=== PATIENT | female | born 1970 | race Caucasian/White ===

== ENCOUNTER 2017-04-24 10:29 | Emergency (ER) | payer OTHER ==
[2017-04-24 10:40] VITALS: BP 126/86; PULSE 102; TEMP 98; BMI 38.2
[2017-04-24] MEDS ORDERED: ALBUTEROL SO4 2.5/IPRATROPIUM 0.5 INH SOL 3 ML VIAL.NEB. NEB ONE ×3 (10:41→12:07)
[2017-04-24] MEDS ORDERED: predniSONE 20 MG TABLET (UD) PO ONE (12:03)
[2017-04-24] MEDS ORDERED: predniSONE 20 MG TABLET (UD) ONE (12:07)
--- NOTE | 2017-04-24 12:41 | PDOC ---
History of Present Illness - General Chief Complaint: Asthma Stated Complaint: COUGH Time Seen by Provider: 04/24/17 11:49 History Source: Patient Exam Limitations: No Limitations - History of Present Illness Initial Comments: 04/24/17 12:24 46 yr female with c/o cough wheezing for one week saw PMD was treated for acid reflux, pt states cough improved but returned today. no fever no chills, no abd pain pt c/o headache after coughing, non smoker. Past History - Past Medical History Allergies/Adverse Reactions: Allergies Allergy/AdvReac Type Severity Reaction Status Date / Time No Known Allergies Allergy Verified 04/24/17 10:34 Home Medications: Ambulatory Orders Aspirin [ASA -] 81 mg PO DAILY #0 tab.chew 02/16/16 Diltiazem Cd [Cardizem Cd -] 120 mg PO DAILY #0 cap.cd.24h 02/16/16 Levothyroxine [Synthroid -] 125 mcg PO DAILY@1000 #0 tablet 02/16/16 Rosuvastatin [Crestor -] 5 mg PO DAILY #0 tablet 02/16/16 Azithromycin [Zithromax 250mg Tablets -] 250 mg PO UTDICT #6 tab 04/24/17 Prednisone [Deltasone] 40 mg PO DAILY #8 tablet 04/24/17 Asthma: Yes Cardiac Disorders: Yes (mvp) COPD: No GI Disorders: Yes (gerd) HTN: Yes Thyroid Disease: Yes Other medical history: vasovagal - Surgical History Abdominal Surgery: Yes (tubal ligation) - Immunization History Immunization Up to Date: Yes - Suicide/Smoking/Psychosocial Hx Smoking History: Never smoked Have you smoked in the past 12 months: No Information on smoking cessation initiated: No Hx Alcohol Use: No Drug/Substance Use Hx: No Substance Use Type: None *Physical Exam - Vital Signs Last Vital Signs Temp Pulse Resp BP Pulse Ox 98.0 F 102 H 18 126/86 100 04/24/17 10:35 04/24/17 10:35 04/24/17 10:35 04/24/17 10:35 04/24/17 10:35 - Physical Exam General Appearance: Yes: Nourished, Appropriately Dressed HEENT: positive: EOMI, AKANKSHA Neck: positive: Supple. negative: Tender Respiratory/Chest: positive: Lungs Clear, Normal Breath Sounds. negative: Chest Tender Cardiovascular: positive: Regular Rhythm, Regular Rate ED Treatment Course - Medications Given in the ED: ED Medications Discontinued Medications Generic Name Dose Route Start Last Admin Trade Name Alem PRN Reason Stop Dose Admin Albuterol/Ipratropium 1 amp 04/24/17 10:41 04/24/17 10:43 Duoneb - NEB 04/24/17 10:42 1 amp NOW ONE Administration Albuterol/Ipratropium 1 amp 04/24/17 12:03 04/24/17 12:10 Duoneb - NEB 04/24/17 12:04 1 amp ONCE ONE Administration Prednisone 40 mg 04/24/17 12:03 04/24/17 12:10 Deltasone - PO 04/24/17 12:04 40 mg ONCE ONE Administration Medical Decision Making - Medical Decision Making 04/24/17 12:26 cc: cough wheezing no fever no chills no abd pain stable vitals speaking clearly no distress will give duoneb now for mild exp wheezing prednisone 40mg now and for 5 days *DC/Admit/Observation/Transfer Diagnosis at time of Disposition: Acute bronchitis, viral - Discharge Dispostion Disposition: HOME Condition at time of disposition: Good - Prescriptions Prescriptions: Azithromycin [Zithromax 250mg Tablets -] 250 mg PO UTDICT #6 tab Prednisone [Deltasone] 40 mg PO DAILY #8 tablet - Referrals Referrals: Jassi Mcclain MD [Primary Care Provider] - - Patient Instructions Printed Discharge Instructions: DI for Bronchiolitis Additional Instructions: drink at least 2 liters of water a day use the inhaler every 4hrs as needed use the nebulizer with albuterol every 4hrs as needed take the next dose of prednsione tomorrow morning take the Zpack as directed for 5 days follow with your doctor on Thursday if no improvement - Post Discharge Activity
== END 2017-04-24 12:54 | disposition home or self-care (01) ==
LOC: JERFT 10:29
PROC: 3E0F7GC Introduction of Other Therapeutic Substance into Respiratory Tract, Via Natural or Artificial Opening (ICD-10-PCS; principal; 2017-04-24)
PROC: 3E0F7GC Introduction of Other Therapeutic Substance into Respiratory Tract, Via Natural or Artificial Opening (ICD-10-PCS; 2017-04-24)
DX: J20.9 Acute bronchitis, unspecified (principal); I10 Essential (primary) hypertension; K21.9 Gastro-esophageal reflux disease without esophagitis; E03.9 Hypothyroidism, unspecified
CPT/HCPCS: 99281-25

== ENCOUNTER 2017-06-23 06:37 | Emergency (ER) | payer OTHER ==
[2017-06-23 07:13] VITALS: BP 112/65; PULSE 91; TEMP 98.3; BMI 38.7
[2017-06-23] MEDS ORDERED: ALBUTEROL SO4 2.5/IPRATROPIUM 0.5 INH SOL 3 ML VIAL.NEB. NEB ONE ×3 (07:14→08:42)
[2017-06-23] MEDS ORDERED: PANTOPRAZOLE 40 MG TABLET (FP) PO ONE (08:38)
[2017-06-23] MEDS ORDERED: DEXAMETHASONE LIQUID 0.5 MG/5 ML 240 ML BULK BOTTLE PO ONE (08:38)
[2017-06-23] MEDS ORDERED: ALBUTEROL SO4 0.083% IH SOL 2.5 MG/3 ML VIAL.NEB. NEB ONE (08:39)
[2017-06-23] MEDS ORDERED: DEXAMETHASONE SOD PHOSPHATE 10 MG/1 ML VIAL ONE (08:42)
[2017-06-23] MEDS ORDERED: PANTOPRAZOLE 40 MG TABLET (FP) ONE (09:06)
--- NOTE | 2017-06-23 09:15 | PDOC ---
History of Present Illness - General Chief Complaint: Asthma Stated Complaint: Asthma, Cough Time Seen by Provider: 06/23/17 08:15 History Source: Patient Exam Limitations: No Limitations - History of Present Illness Initial Comments: 06/23/17 09:00 Patient is a 46 year old female with history of asthma, hypertension, hypothyroidism and reflux related asthma presents with coughing since eating a beef pale yesterday. Patient was diagnosed with severe reflux and had recently changed her diet yesterday while at work there is no other options besides [place] beef patties associated afterward started coughing now with intermittent persisting cough. Denies any fever, no chest pain or shortness of breath. Has been taking omeprazole, without resolve. Allergies: No known allergies Medications: Omeprazole Family History: Non-contributory Social History: Denies smoking, alcohol use, or IVDU Pulse rate 91. Review of Systems GENERAL/CONSTITUTIONAL: No fever or chills. No weakness. No weight change. HEAD, EYES, EARS, NOSE AND THROAT: No change in vision. No ear pain or discharge. No sore throat. CARDIOVASCULAR: No chest pain or shortness of breath. RESPIRATORY: And productive cough and wheezing, no hemoptysis. GASTROINTESTINAL: No nausea, vomiting, diarrhea or constipation. No rectal bleeding. GENITOURINARY: No dysuria, frequency, or change in urination. MUSCULOSKELETAL: No joint or muscle swelling or pain. No neck or back pain. SKIN AND BREASTS: No rash or easy bruising. NEUROLOGIC: No headache, vertigo, loss of consciousness, or loss of sensation. PSYCHIATRIC: No depression or anxiety. ENDOCRINE: No increased thirst. No abnormal weight change. HEMATOLOGIC/LYMPHATIC: No anemia, easy bleeding, or history of blood clots. ALLERGIC/IMMUNOLOGIC: No hives or skin allergy. No latex allergy. Physical Exam: GENERAL: The patient is awake, alert, and fully oriented, in no acute distress. EYES: Pupils equal, round and reactive to light, extraocular movements intact, sclera anicteric, conjunctiva clear. ENT: Ears normal, nares patent, oropharynx clear without exudates. Moist mucous membranes. No uvula deviation NECK: Normal range of motion, supple without lymphadenopathy, JVD, or masses. LUNGS: Breath sounds equal, no rhonchi, expiratory wheezing with no crackles bronchospasm during assessment. HEART: Regular rate and rhythm, normal S1 and S2 without murmur, rub or gallop. ABDOMEN: Soft, nontender, normoactive bowel sounds. No guarding, no rebound. No masses. No bruising or abrasions MUSCULOSKELETAL: Normal range of motion, no edema. No clubbing or cyanosis. No cords, erythema, or tenderness. No CVA Tenderness with fist. NEUROLOGICAL: Cranial nerves II through XII grossly intact. Normal speech, normal gait. SKIN: Warm, Dry, normal turgor, no rashes or lesions noted. 06/23/17 09:37 Past History - Past Medical History Allergies/Adverse Reactions: Allergies Allergy/AdvReac Type Severity Reaction Status Date / Time No Known Allergies Allergy Verified 06/23/17 07:08 Home Medications: Ambulatory Orders Aspirin [ASA -] 81 mg PO DAILY #0 tab.chew 02/16/16 Diltiazem Cd [Cardizem Cd -] 120 mg PO DAILY #0 cap.cd.24h 02/16/16 Levothyroxine [Synthroid -] 125 mcg PO DAILY@1000 #0 tablet 02/16/16 Diltiazem [Cardizem -] 30 mg PO QID 06/23/17 Famotidine [Pepcid -] 40 mg PO ASDIR 06/23/17 Pantoprazole Sodium [Protonix -] 40 mg PO DAILY #7 tablet.ec 06/23/17 Topiramate 25 mg PO 06/23/17 Topiramate [Trokendi Xr] 25 mg PO BID 06/23/17 Asthma: Yes Cardiac Disorders: Yes (mvp) COPD: No DVT: No GI Disorders: Yes (gerd) HTN: Yes Thyroid Disease: Yes - Surgical History Abdominal Surgery: Yes (tubal ligation) - Immunization History Immunization Up to Date: Yes - Suicide/Smoking/Psychosocial Hx Smoking History: Never smoked Have you smoked in the past 12 months: No Information on smoking cessation initiated: No Hx Alcohol Use: No Drug/Substance Use Hx: No Substance Use Type: None *Physical Exam - Vital Signs Last Vital Signs Temp Pulse Resp BP Pulse Ox 98.3 F 91 H 19 112/65 96 06/23/17 07:06 06/23/17 07:06 06/23/17 07:06 06/23/17 07:06 06/23/17 07:06 ED Treatment Course - Medications Given in the ED: ED Medications Discontinued Medications Generic Name Dose Route Start Last Admin Trade Name Freq PRN Reason Stop Dose Admin Albuterol/Ipratropium 1 amp 06/23/17 07:19 06/23/17 07:19 Duoneb - NEB 06/23/17 07:20 1 amp NOW ONE Administration Medical Decision Making - Medical Decision Making 06/23/17 09:16 A/P: Patient here with reflux, asthma exacerbation. Patient reports symptoms started after eating [place] beef razia. Lungs with expiratory wheezing, patient complaining of reflux does have an appointment on July 17 for upper endoscopy with gastroenterology. Will give Protonix 40 mg by mouth, Decadron 10 mg by mouth, repeat albuterol then reevaluate. 06/23/17 09:35 Patient report feels better after treatment will DC patient on Protonix for 7 days, and to continue her albuterol as previously prescribed. Recommend follow- up with GI, and stick to reflux diet. Lungs are clear and reassessment and no cough noted. 06/23/17 09:37 *DC/Admit/Observation/Transfer Diagnosis at time of Disposition: Reflux esophagitis Asthma Qualifiers: Asthma severity: mild Asthma persistence: intermittent Asthma complication type : with acute exacerbation Qualified Code(s): J45.21 - Mild intermittent asthma with (acute) exacerbation - Discharge Dispostion Disposition: HOME Condition at time of disposition: Stable Admit: No - Prescriptions Prescriptions: Pantoprazole Sodium [Protonix -] 40 mg PO DAILY #7 tablet.ec - Referrals Referrals: Jassi Mcclain MD [Primary Care Provider] - - Patient Instructions Additional Instructions: Please make sure to stick to previous diet for reflux. Please follow-up with your primary care doctor and GI Continue albuterol as needed - Post Discharge Activity Forms/Work/School Notes: Back to Work
== END 2017-06-23 09:42 | disposition home or self-care (01) ==
LOC: JERFT 06:37 → JER 06:37 → JERFT 09:42
PROC: 3E0F7GC Introduction of Other Therapeutic Substance into Respiratory Tract, Via Natural or Artificial Opening (ICD-10-PCS; principal; 2017-06-23)
DX: J45.21 Mild intermittent asthma with (acute) exacerbation (principal); K21.9 Gastro-esophageal reflux disease without esophagitis; I10 Essential (primary) hypertension; E03.9 Hypothyroidism, unspecified; I34.1 Nonrheumatic mitral (valve) prolapse
CPT/HCPCS: 99281-25

== ENCOUNTER 2019-05-12 21:39 | Emergency (ER) | payer OTHER ==
[2019-05-12 22:03] VITALS: BP 122/59; PULSE 83; TEMP 98.1; BMI 39.0
[2019-05-12] MEDS ORDERED: methylPREDNISolone NA SUCC 125 MG/2 ML VIAL IVPB ONE (22:23)
[2019-05-12] MEDS ORDERED: ALBUTEROL SO4 2.5/IPRATROPIUM 0.5 INH SOL 3 ML VIAL.NEB. NEB ONE ×2 (22:39→22:44)
[2019-05-12] MEDS ORDERED: methylPREDNISolone NA SUCC 125 MG/2 ML VIAL ONE ×2 (22:40→22:44)
[2019-05-12] MEDS: ALBUTEROL SO4 2.5/IPRATROPIUM 0.5 INH SOL 3 ML VIAL.NEB. NEB SCH ×3 (22:48→23:12)
--- NOTE | 2019-05-13 00:01 | PDOC ---
History of Present Illness - General Chief Complaint: Asthma Stated Complaint: ASTHMA Time Seen by Provider: 05/12/19 22:10 History Source: Patient Exam Limitations: No Limitations Past History - Past Medical History Allergies/Adverse Reactions: Allergies Allergy/AdvReac Type Severity Reaction Status Date / Time No Known Allergies Allergy Verified 05/12/19 22:03 Home Medications: Ambulatory Orders Aspirin [ASA -] 81 mg PO DAILY #0 tab.chew 02/16/16 Diltiazem Cd [Cardizem Cd -] 120 mg PO DAILY #0 cap.cd.24h 02/16/16 Levothyroxine [Synthroid -] 125 mcg PO DAILY@1000 #0 tablet 02/16/16 Diltiazem [Cardizem -] 30 mg PO QID 06/23/17 Famotidine [Pepcid -] 40 mg PO ASDIR 06/23/17 Pantoprazole Sodium [Protonix -] 40 mg PO DAILY #7 tablet.ec 06/23/17 Topiramate 25 mg PO 06/23/17 Topiramate [Trokendi Xr] 25 mg PO BID 06/23/17 Fluticasone Propionate [Flovent Hfa] 44 mcg IH BID #1 inh 05/13/19 predniSONE [Deltasone -] 40 mg PO DAILY #8 tablet 05/13/19 Asthma: Yes Cardiac Disorders: Yes (mvp) COPD: No DVT: No GI Disorders: Yes (gerd) HTN: Yes Thyroid Disease: Yes - Surgical History Abdominal Surgery: Yes (tubal ligation) - Immunization History Immunization Up to Date: Yes - Psycho Social/Smoking Cessation Hx Smoking History: Never smoked Have you smoked in the past 12 months: No Information on smoking cessation initiated: No Hx Alcohol Use: No Drug/Substance Use Hx: No Substance Use Type: None *Physical Exam - Vital Signs Last Vital Signs Temp Pulse Resp BP Pulse Ox 98.1 F 83 24 H 122/59 L 94 L 05/12/19 21:59 05/12/19 21:59 05/12/19 21:59 05/12/19 21:59 05/12/19 21:59 - Physical Exam General Appearance: No: Apparent Distress Respiratory/Chest: positive: Wheezing. negative: Respiratory Distress, Accessory Muscle Use, Rhonchi, Stridor Cardiovascular: positive: Regular Rhythm, Regular Rate, S1, S2. negative: Murmur Integumentary: positive: Normal Color Neurologic: positive: Alert ED Treatment Course - Medications Given in the ED: ED Medications Discontinued Medications Generic Name Dose Route Start Last Admin Trade Name Alem PRN Reason Stop Dose Admin Albuterol/Ipratropium 1 amp 05/12/19 22:30 05/12/19 23:12 Duoneb - NEB 05/12/19 23:01 1 amp Q15M BRYAN Administration Methylprednisolone Sodium Succinate 125 mg 05/12/19 22:23 05/12/19 23:12 Solu-Medrol - IVPB 05/12/19 22:24 125 mg ONCE ONE Administration Medical Decision Making - Medical Decision Making 48-year-old female history of asthma (never intubated, never hospitalized), hypertension, hypothyroidism, acid reflux, mitral valve prolapse presents with shortness of breath and chest tightness from today along with dry cough. Patient mentions her asthma has been getting progressively worse over the past month and today it was the worst. She feels like her symptoms are related to her acid reflux as her doctor changed her acid reflux medications a month ago. States this happened to her 2 years ago as well when her acid reflux medications got changed. Patient currently only uses albuterol for her asthma. Denies fever, abdominal pain, nausea, vomiting, leg swelling, calf pain. Denies smoking or drug use. Patient feeling better after receiving duo nebs x3 along with Solu-Medrol Had patient ambulating around ED as well and not feeling short of breath Will also add on Flovent for further asthma control Stable for discharge 05/12/19 23:57 Discharge - Discharge Information Problems reviewed: Yes Clinical Impression/Diagnosis: Asthma exacerbation Qualifiers: Asthma severity: moderate Asthma persistence: unspecified Qualified Code(s): J45.901 - Unspecified asthma with (acute) exacerbation Condition: Improved Disposition: HOME - Admission No - Additional Discharge Information Prescriptions: Fluticasone Propionate [Flovent Hfa] 44 mcg IH BID #1 inh predniSONE [Deltasone -] 40 mg PO DAILY #8 tablet Prescription Drug Monitoring Program (I-STOP) results: I-STOP not reviewed - Follow up/Referral Referrals: Jassi Mcclain MD [Primary Care Provider] - 2 Days - Patient Discharge Instructions Patient Printed Discharge Instructions: DI for Asthma -- Adult Additional Instructions: Thank you for choosing [facility]. It was a pleasure taking care of you. Use albuterol as needed for wheezing/shortness of breath Take the steroids as prescribed You were also started a new medication for your asthma called Flovent. Please take this medication daily as prescribed Follow-up with your doctor in 2 days Return to the Emergency Department if your symptoms worsen or persist or have other concerning symptoms. - Post Discharge Activity
== END 2019-05-13 00:12 | disposition home or self-care (01) ==
LOC: JER 21:39 → JERFT 21:39 → JER 05-13 00:12
PROC: 3E0F7GC Introduction of Other Therapeutic Substance into Respiratory Tract, Via Natural or Artificial Opening (ICD-10-PCS; principal; 2019-05-12)
PROC: 3E0333Z Introduction of Anti-inflammatory into Peripheral Vein, Percutaneous Approach (ICD-10-PCS; 2019-05-12)
DX: J45.901 Unspecified asthma with (acute) exacerbation (principal); I10 Essential (primary) hypertension; E03.9 Hypothyroidism, unspecified; K21.9 Gastro-esophageal reflux disease without esophagitis; I34.1 Nonrheumatic mitral (valve) prolapse; R01.1 Cardiac murmur, unspecified; Z98.51 Tubal ligation status
CPT/HCPCS: 99285-25

== ENCOUNTER 2020-02-28 13:35 | Emergency (ER) | payer OTHER ==
[2020-02-28 14:00] VITALS: BP 126/48; PULSE 75; TEMP 98.4; BMI 36.6
[2020-02-28] MEDS ORDERED: METOCLOPRAMIDE HCL INJECTION 10 MG/2 ML VIAL IVPB ONE (14:38)
[2020-02-28] MEDS ORDERED: ACETAMINOPHEN 1000 MG/100 ML VIAL (NON FORMULARY) IVPB ONE (14:38)
[2020-02-28] MEDS ORDERED: METOCLOPRAMIDE HCL INJECTION 10 MG/2 ML VIAL ONE (14:47)
[2020-02-28] MEDS ORDERED: ACETAMINOPHEN INJECTION 100 ML IVPB ONE (14:47)
[2020-02-28] MEDS ORDERED: SODIUM CHLORIDE 1,000 ML IV STA (15:02)
[2020-02-28 15:11] LABS: EOS % 1.2 % (0-4.5); HEMATOCRIT 40.3 % (32.4-45.2); HEMOGLOBIN 13.2 GM/dL (10.7-15.3); LYMPH % 23.3 % (8-40); MCHC 32.7 g/dl (32.0-36.0); MEAN CELL VOLUME 85.6 fl (80-96); MEAN PLT VOLUME 8.4 fl (7.5-11.1); NEUT % 69.5 % (42.8-82.8); PLATELET COUNT 302 K/MM3 (134-434); RDW 14.1 % (11.6-15.6); WHITE BLOOD COUNT 8.1 K/mm3 (4.0-10.0)
[2020-02-28 15:28] LABS: INR 1.07 (0.83-1.09); PROTHROMBIN TIME (PATIENT) 13.1 SEC (9.7-13.0)
[2020-02-28 15:29] LABS: CHLORIDE 104 mmol/L (98-107); POTASSIUM 3.8 mmol/L (3.5-5.1); SODIUM 141 mmol/L (136-145)
[2020-02-28 15:31] LABS: CALCIUM 8.8 mg/dL (8.5-10.1)
[2020-02-28 15:32] LABS: ALBUMIN 3.4 g/dl (3.4-5.0); ANION GAP 8 MMOL/L (8-16); BLOOD UREA NITROGEN 17.1 mg/dL (7-18); CO2 29 mmol/L (21-32); GLUCOSE,RANDOM 81 mg/dL (74-106)
[2020-02-28 15:35] LABS: CREATININE 0.7 mg/dL (0.55-1.3); SGOT/AST 17 U/L (15-37); SGPT/ALT 16 U/L (13-61)
[2020-02-28 15:36] LABS: BILIRUBIN,TOTAL 0.3 mg/dL (0.2-1)
[2020-02-28 15:37] LABS: TOT PROT 7.3 g/dl (6.4-8.2)
[2020-02-28 15:38] LABS: ALK PHOS 133 U/L (45-117)
== END 2020-02-28 17:59 | disposition home or self-care (01) ==
LOC: JERFT 13:35
PROC: 3E0333Z Introduction of Anti-inflammatory into Peripheral Vein, Percutaneous Approach (ICD-10-PCS; principal; 2020-02-28)
PROC: 3E033GC Introduction of Other Therapeutic Substance into Peripheral Vein, Percutaneous Approach (ICD-10-PCS; 2020-02-28)
PROC: 3E033GC Introduction of Other Therapeutic Substance into Peripheral Vein, Percutaneous Approach (ICD-10-PCS; 2020-02-28)
PROC: 3E0337Z Introduction of Electrolytic and Water Balance Substance into Peripheral Vein, Percutaneous Approach (ICD-10-PCS; 2020-02-28)
DX: M79.602 Pain in left arm (principal); G43.809 Other migraine, not intractable, without status migrainosus; I34.1 Nonrheumatic mitral (valve) prolapse
CPT/HCPCS: 36415; 70450-TC; 80053; 82550; 84484; 84703; 85025; 85610; 93005; 93010; 99285-25; J0131

== ENCOUNTER 2021-06-14 17:52 | Emergency (ER) | payer OTHER ==
[2021-06-14 18:09] VITALS: BP 138/77; PULSE 83; TEMP 98.1; BMI 41.0
[2021-06-14] MEDS ORDERED: ALBUTEROL SO4 0.083% IH SOL 2.5 MG/3 ML VIAL.NEB. NEB ONE ×2 (20:32→20:42)
[2021-06-14] MEDS ORDERED: DEXAMETHASONE SOD PHOSPHATE 10 MG/1 ML VIAL IVPUSH ONE (20:34)
[2021-06-14] MEDS ORDERED: FAMOTIDINE 20 MG/50 ML IVPB 20 MG/50 ML MG IVPB ONE ×2 (20:35→20:43)
[2021-06-14] MEDS ORDERED: MAG HYDROX/AL HYDROX/SIMETH 30 ML UNIT-DOSE CUP PO ONE (20:35)
[2021-06-14] MEDS ORDERED: DEXAMETHASONE SOD PHOSPHATE 10 MG/1 ML VIAL ONE (20:42)
[2021-06-14] MEDS ORDERED: MAG HYDROX/AL HYDROX/SIMETH 30 ML UNIT-DOSE CUP ONE (20:42)
[2021-06-14 21:17] LABS: BASO % 0.6 % (0-2.0); EOS % 4.3 % (0-4.5); HEMATOCRIT 38.1 % (32.4-45.2); HEMOGLOBIN 12.5 GM/dL (10.7-15.3); LYMPH % 23.1 % (8-40); MCH 27.3 pg (25.7-33.7); MCHC 32.9 g/dl (32.0-36.0); MEAN PLT VOLUME 7.7 fl (7.5-11.1); MONO % 5.7 % (3.8-10.2); NEUT % 66.3 % (42.8-82.8); PLATELET COUNT 289 10^3/uL (134-434); RBC 4.58 M/mm3 (3.60-5.2); RDW 15.5 % (11.6-15.6); WHITE BLOOD COUNT 9.6 K/mm3 (4.0-10.0)
[2021-06-14 21:34] LABS: CHLORIDE 107 mmol/L (98-107); SODIUM 137 mmol/L (136-145)
[2021-06-14 21:36] LABS: CALCIUM 8.7 mg/dL (8.5-10.1)
[2021-06-14 21:37] LABS: ALBUMIN 3.1 g/dl (3.4-5.0); BLOOD UREA NITROGEN 19.7 mg/dL (7-18); CO2 26 mmol/L (21-32); GLUCOSE,RANDOM 100 mg/dL (74-106)
[2021-06-14 21:40] LABS: CREATININE 0.9 mg/dL (0.55-1.3)
[2021-06-14 21:42] LABS: BILIRUBIN,TOTAL 0.5 mg/dL (0.2-1); TOT PROT 7.5 g/dl (6.4-8.2)
[2021-06-14 21:43] LABS: ALK PHOS 111 U/L (45-117); ANION GAP 4 MMOL/L (8-16); SGOT/AST 102 U/L (15-37); SGPT/ALT 23 U/L (13-61)
[2021-06-14 23:36] LABS: CALCIUM 8.3 mg/dL (8.5-10.1)
[2021-06-14 23:37] LABS: BLOOD UREA NITROGEN 17.1 mg/dL (7-18)
[2021-06-14 23:40] LABS: CREATININE 0.8 mg/dL (0.55-1.3)
[2021-06-14] MEDS ORDERED: ALBUTEROL SO4 HFA INHALER IH ONE ×2 (23:53→23:54)
== END 2021-06-14 23:58 | disposition home or self-care (01) ==
LOC: JER 17:52
PROC: 3E0F7GC Introduction of Other Therapeutic Substance into Respiratory Tract, Via Natural or Artificial Opening (ICD-10-PCS; principal; 2021-06-14)
PROC: 3E033GC Introduction of Other Therapeutic Substance into Peripheral Vein, Percutaneous Approach (ICD-10-PCS; 2021-06-14)
PROC: 3E033GC Introduction of Other Therapeutic Substance into Peripheral Vein, Percutaneous Approach (ICD-10-PCS; 2021-06-14)
DX: J45.909 Unspecified asthma, uncomplicated (principal); K21.00 Gastro-esophageal reflux disease with esophagitis, without bleeding; R07.9 Chest pain, unspecified
CPT/HCPCS: 36415; 80048; 80053; 84484; 85025; 93005; 93010; 99284-25; J1100

== ENCOUNTER 2022-03-04 16:07 | Emergency (ER) | payer OTHER ==
[2022-03-04] MEDS ORDERED: ALBUTEROL SO4 2.5/IPRATROPIUM 0.5 INH SOL 3 ML VIAL.NEB. NEB ONE (16:29)
[2022-03-04 16:38] VITALS: BP 140/98; PULSE 117; RESP 22; TEMP 98.5; BMI 42.0
[2022-03-04] MEDS ORDERED: ACETAMINOPHEN 500 MG TABLET (FP) ONE (18:28)
== END 2022-03-04 20:15 | disposition home or self-care (01) ==
LOC: JER 16:07
PROC: 3E0F7GC Introduction of Other Therapeutic Substance into Respiratory Tract, Via Natural or Artificial Opening (ICD-10-PCS; principal; 2022-03-04)
DX: J09.X2 Influenza due to identified novel influenza A virus with other respiratory manifestations (principal); R05.1 Acute cough
CPT/HCPCS: 0241U-QW; 99283-25

== ENCOUNTER 2022-03-09 09:03 | Emergency (ER) | payer OTHER ==
[2022-03-09 09:14] VITALS: BP 121/75; PULSE 89; RESP 18; TEMP 98.1; BMI 30.1
[2022-03-09 09:49] LABS: BASO % 0.6 % (0-2.0); EOS % 0.1 % (0-4.5); HEMATOCRIT 41.4 % (32.4-45.2); HEMOGLOBIN 13.2 GM/dL (10.7-15.3); LYMPH % 26.3 % (8-40); MCH 26.3 pg (25.7-33.7); MCHC 31.9 g/dl (32.0-36.0); MEAN CELL VOLUME 82.5 fl (80-96); MONO % 11.1 % (3.8-10.2); NEUT % 61.9 % (42.8-82.8); PLATELET COUNT 240 10^3/uL (134-434); RBC 5.02 M/mm3 (3.60-5.2); RDW 14.9 % (11.6-15.6); WHITE BLOOD COUNT 4.8 K/mm3 (4.0-10.0)
[2022-03-09 10:25] LABS: BLOOD UREA NITROGEN 15.6 mg/dL (7-18); CALCIUM 8.5 mg/dL (8.5-10.1)
[2022-03-09 10:26] LABS: ALBUMIN 3.2 g/dl (3.4-5.0)
[2022-03-09 10:29] LABS: CREATININE 0.9 mg/dL (0.55-1.3)
[2022-03-09 10:30] LABS: BILIRUBIN,TOTAL 0.6 mg/dL (0.2-1); TOT PROT 7.1 g/dl (6.4-8.2)
== END 2022-03-09 11:45 | disposition home or self-care (01) ==
LOC: JER 09:03
DX: J09.X2 Influenza due to identified novel influenza A virus with other respiratory manifestations (principal); J20.9 Acute bronchitis, unspecified
CPT/HCPCS: 36415; 71046-TC-FY; 80053; 85025; 93005; 93010; 99285-25

== ENCOUNTER 2022-05-24 10:35 | Emergency (ER) | payer OTHER ==
[2022-05-24 10:58] VITALS: BP 126/53; PULSE 78; RESP 18; TEMP 98.1; BMI 43.0
== END 2022-05-24 13:18 | disposition home or self-care (01) ==
LOC: JERFT 10:35
DX: M54.16 Radiculopathy, lumbar region (principal)
CPT/HCPCS: 99281-25